=== PATIENT | male | born 1960 | race African-American/Black ===

== ENCOUNTER 2023-10-22 12:23 | Emergency (ER) | payer OTHER ==
[~2023-10-22] VITALS: Ht 170.2 cm; Wt 74.8 kg
[2023-10-22 15:22] LABS: HEMOGLOBIN 15.1 g/dL (13-16.00); MEAN CELL VOLUME 86.5 fL (80.0-100.00); MEAN CORPUSCULAR HEMOGLOBIN 28.3 pg (27.00-32.0); MEAN CORPUSCULAR HGB CONC 32.7 g/dl (32.0-36.0); PLATELET COUNT 172 K/uL (150-450); RED BLOOD COUNT 5.32 M/uL (4.00-6.00); RED CELL DISTRIBUTION WIDTH 14.4 % (11.5-14.5)
[2023-10-22 15:48] LABS: PH,URINE 5.5 (5.0-8.0); URINE APPEARANCE Cloudy; URINE BILIRRUBIN Negative (NEGATIVE); URINE BLOOD Large; URINE COLOR Yellow; URINE GLUCOSE Negative (NEGATIVE); URINE LEUKOCYTE Trace; URINE NITRATE Negative
[2023-10-22 15:52] LABS: URINE BACTERIA 51.6 uL (0.0-1933); URINE EPITHELIAL CELLS 6.6 uL (0.0-38.8); URINE WBC 296.6 uL (0.0-23.2)
[2023-10-22 15:53] LABS: CALCIUM 9.7 mg/dL (8.5-10.1); CREATININE SERUM 1.11 mg/dL (0.70-1.30); GFR 66.69; POTASSIUM 4.25 mEq/L (3.5-5.1)
[2023-10-22 16:19] LABS: URINE PROTEIN 300 (NEGATIVE)
== END 2023-10-22 17:42 | disposition home or self-care (01) ==
LOC: ER 12:23 → EDBD 12:23 → ER 13:12
PROVIDERS: General Practice
DX: N39.0 Urinary tract infection, site not specified (principal); R33.9 Retention of urine, unspecified; I10 Essential (primary) hypertension